=== PATIENT | female | born 1965 | race Caucasian/White ===

== ENCOUNTER 2018-07-25 08:20 | Day surgery (SDC) | payer SELFPAY ==
--- NOTE | 2018-07-25 | COLBX_PTH ---
PATIENT: COURTNEY ZUNIGA LOC: EN U#:[id number] AGE/SX: 52/F ROOM: RE07/25/[address]: Dr. Tony Coe MD : 1965 BED: DIS: 07/25/2018 SPEC #: [id number] RECD: 07/25/18 12:13 STATUS: JACKIE HERB #: [id number] ELI: 07/25/18 00:[address]: Tony Coe DEPT: SURGICAL PATHOLOGY RECD BY: Tanmay Galvez ENTERED: 07/25/18 12:13 SP TYPE: COLON BX OTHR DR: Dr. Yanick Rashid, DO Tissues: Sigmoid colon biopsy Procedures: Surgery Specimen Level IV HEADER OPERATION: Colonoscopy (MAC) PRE-OP DIAGNOSIS: Screening TISSUE SUBMITTED: Sigmoid colon polyp MICROSCOPIC DIAGNOSIS Sigmoid colon polyp, biopsy: Hyperplastic polyp. Fragments of fecal material. See comment. SJ:aj 07/28/18 COMMENT The specimen predominantly consists of fecal material. MICROSCOPIC DESCRIPTION Slides are reviewed. GROSS DESCRIPTION Received in fixative is one container labeled with the patient's name and designated sigmoid colon polyp. The specimen consists of multiple irregular fragments of hyman soft tissue mixed with fecal material that in aggregate measure 2.5 x 0.5 x 0.1 cm. The specimen is totally submitted in one cassette. / SJ:aj 07/25/18 TC:1 CPT: 51956
[2018-07-25 08:36] VITALS: BP 124/74; PULSE 68; RESP 14; TEMP 36.5; O2SAT 100; BMI 29.7
--- NOTE | 2018-07-25 09:14 | H&P.OPEN ---
Past Medical/Surgical History - Planned Operation Planned Operative Procedure/s: COLONOSCOPY Date of Operative Procedure: 07/25/18 Permit Signed: Yes S.O.S: No Is This Patient Having a Total Joint: No - Previous Hospitalizations/Surgeries HX Hospitalizations: No HX of Surgeries: HYSTERECTOMY. TUBAL. Any Problems With Anesthesia: No You/Your Family Experience Fever (Hyperthermia) With Anes: No Cholinesterase deficiency: No - Cardiovascular Hx Chest Pain within Last 2 months: No Hx of Irregular Heartbeat and/or Afib: No Hx Heart Attack: No Hx Congestive Heart Failure: No Hx Rheumatic Fever: No Hx Hypertension: No Hx Internal Defibrillator: No Hx Pacemaker: No Hx Cardiac Catheterization: No Hx Cardiac Surgery/Stents/Etc.: No Hx Stress Test: No HX Edema: No Hx Pain in Legs when Walking/Leg Cramps: No - Respiratory Chronic Cough: No HX of Shortness of Breath: No Hoarseness: No Hx Chronic Obstructive Pulmonary Disease (COPD): No Hx Asthma: No Hx Emphysema: No Hx Sleep Apnea: No Hx Oxygen Use at Home: No Hx Respiratory Tract Infection/Cold (presently): No Do You Snore Loudly (louder than talking or can be heard): No Do You Often Feel Tired/ Fatigued/ Sleepy Dring Daytime?: No Has Anyone Observed You Stop Breathing During Sleep?: No Result (for STOP score): Negative Hx Smoking: No Smoking Status: Never smoker - Gastrointestinal Hx Gastroesophageal Reflux: No Hx Gastrointestinal Disorders: No Hx Gastrointestinal Bleed: No Hx Ulcer: No Hx Hiatal Hernia: No Difficulty Chewing/Swallowing: No Recent Onset of Swallowing Problems: No Special diet followed at home: No Hx Unplanned Weight Loss of 20#: No HX Unplanned Weight Gain of 20#: No - Neurological Hx Seizures: No HX Syncope/Blackout Spells/Unconsciousness: No Hx CVA/Stroke: No Hx Transient Ischemic Attacks (TIA): No Hx Multiple Sclerosis: No Hx Parkinson's Disease: No Hx Head/Neck Injury: No Hx Headaches: No Hx Back Injury/Pain: No Recent Onset of Speech Difficulty: No Restless Legs: No Does patient have nerve stimulator: No - Blood Disorder Hx Leukemia: No Bleeding Tendencies: No Hx Deep Vein Thrombosis: No Hx High Cholesterol: No Blood Transmitted Disease: No Hx Hepatitis: No Hx Cirrhosis: No Hx Anemia: No Hx Blood Disorders: No - Reproduction : No Is Patient Lactating: No Hx Hysterectomy: Yes Hx Tubal Ligation: Yes Are You Post Menopause: Yes - Genitourinary Hx Renal Disease: No - Musculoskeletal Hx Arthritis: No Hx Rheumatoid Arthritis: No Hx Gout: No Recent Onset of an Orthopedic Problem: No - Endocrine Hx Diabetes: No Thyroid Disease: No Hx Steroid Therapy: No - Psycho/Social Hx Substance Use: No Hx Alcohol Use: No Hx Anxiety: No Hx Depression: No Mental Illness: No Hx Dementia: No - Miscellaneous Hx Cancer: No Recent Exposure to Contagious Disease: No Active MRSA: No Hx of C-Diff: No Any Loose Teeth: No Allergies No Known Allergies Allergy (Verified 07/24/18 11:14) - Discharge Is Pt Admitted From a Retirement, or a [place] [facility]: No Who Could Help: After D/C, Where Do you Plan to Go: Return Home - Physical Exam General: Alert, Oriented x3, Cooperative Lungs: Normal air movement Cardiovascular: Regular rate, Regular Rhythm Abdomen: Soft, Non Tender, Non-Distended Vital Signs Temp Pulse Resp BP Pulse Ox 97.7 F L 68 14 124/74 H 100 07/25/18 08:36 07/25/18 08:36 07/25/18 08:36 07/25/18 08:36 07/25/18 08:36 Oxygen Delivery Method Room Air Weight: 167 lb 8.821 oz Body Mass Index (BMI) 29.7 Assessment/Plan 52-year-old female for screening colonoscopy 1. The patient reports that she is having no abdominal pain or blood in her stool at this time. She has never had a colonoscopy. She does have a family history of a sister with colon cancer less than age 60. 2. I explained endoscopy in detail to the patient. I explained the risks including but not limited to stroke or heart attack with anesthesia, perforation of the GI tract, bleeding, infection. I explained that any of these could necessitate further emergency surgery. The patient understands and all questions were answered sufficiently. The patient wishes to proceed with procedure. Tony Coe MD Pager: [facility] [address] [place] [address], [address] [place] [address] Office: Surgery Risks - Colonoscopy Risks Include but are not Limited To: Risks include but are not limited to: Bleeding, perforation requiring further surgery, inability to complete colonoscopy requiring barium enema.
[2018-07-25 10:40] VITALS: BP 124/74; BP 98/66; PULSE 62; RESP 16; TEMP 36.6; O2SAT 100
--- NOTE | 2018-07-25 10:42 | OP.ENDO_ITS ---
Patient Name: Candi Caraballo Procedure Date: 07/25/2018 10:01 AM Date of : 1965 Age: 52 Procedure: Colonoscopy Indications: Screening for colorectal malignant neoplasm, Screening in patient at increased risk: Colorectal cancer in sister before age 60 Providers: Tony Coe MD Referring MD: Tony Coe MD Medicines: Monitored Anesthesia Care Patient Profile: This is a 52 year old female. Last Colonoscopy: none. The patient's first colonoscopy is today. Complications: No immediate complications. Procedure: Pre-Anesthesia Assessment: - Prior to the procedure, a History and Physical was performed, and patient medications and allergies were reviewed. The patient's tolerance of previous anesthesia was also reviewed. The risks and benefits of the procedure and the sedation options and risks were discussed with the patient. All questions were answered, and informed consent was obtained. Prior Anticoagulants: The patient has taken no previous anticoagulant or antiplatelet agents. After reviewing the risks and benefits, the patient was deemed in satisfactory condition to undergo the procedure. After I obtained informed consent, the scope was passed under direct vision. Throughout the procedure, the patient's blood pressure, pulse, and oxygen saturations were monitored continuously. The pediatric colonoscope was introduced through the anus and advanced to the cecum, identified by appendiceal orifice and ileocecal valve. The colonoscopy was somewhat difficult due to a tortuous colon. The patient tolerated the procedure well. The quality of the bowel preparation was good. Scope In: 10:06:55 AM Scope Withdrawal Time 0 hours 11 minutes 54 seconds Scope Out: 10:36:25 AM Total Procedure Duration Time 0 hours 29 minutes 30 seconds Findings: A polyp was found in the sigmoid colon. The polyp was removed with a hot snare. Resection and retrieval were complete. The exam was otherwise without abnormality on direct and retroflexion views. Impression: - One polyp in the sigmoid colon, removed with a hot snare. Resected and retrieved. - The examination was otherwise normal on direct and retroflexion views. Recommendation: - Discharge patient to home. - Resume previous diet. - Continue present medications. - Await pathology results. - Repeat colonoscopy date to be determined after pending pathology results are reviewed for surveillance. No later than 5 years due to family history of colon cancer. - Physician's office will call you with pathology results and recommendations for when to repeat colonoscopy. Procedure Code(s): --- Professional --- 84657, PT, Colonoscopy, flexible; with removal of tumor(s), polyp(s), or other lesion(s) by snare technique Diagnosis Code(s): --- Professional --- Z12.11, Encounter for screening for malignant neoplasm of colon Z80.0, Family history of malignant neoplasm of digestive organs D12.5, Benign neoplasm of sigmoid colon CPT copyright 2017 [employer]. All rights reserved. The codes documented in this report are preliminary and upon pigeon fancier review may be revised to meet current compliance requirements. Tony Coe MD 07/25/2018 10:41:53 AM This report has been signed electronically. Number of Addenda: 0 Note Initiated On: 07/25/2018 10:01 AM
[2018-07-25 10:45] VITALS: BP 124/74; BP 98/64; PULSE 65; RESP 16; O2SAT 100
[2018-07-25 10:50] VITALS: BP 124/74; BP 97/71; PULSE 62; RESP 16; O2SAT 100
[2018-07-25 10:55] VITALS: BP 124/74; BP 98/71; PULSE 63; RESP 16; TEMP 36.7; O2SAT 100
[2018-07-25 11:26] VITALS: BP 124/74
== END 2018-07-25 11:30 | disposition home or self-care (01) ==
PROVIDERS: Family Provider Family Medicine; PCP Family Medicine; Visit Provider Surgery
PROC: 0DJD8ZZ Inspection of Lower Intestinal Tract, Via Natural or Artificial Opening Endoscopic (ICD-10-PCS; CPT 45378; principal; 2018-07-25 09:25)
DX: Z12.11 Encounter for screening for malignant neoplasm of colon (principal); K63.5 Polyp of colon; Z78.0 Asymptomatic menopausal state; Z80.0 Family history of malignant neoplasm of digestive organs
CPT/HCPCS: 45385; 88305; J7120

== ENCOUNTER → 2022-10-16 | Outpatient (CLI) | payer SELFPAY ==
--- NOTE | 2022-10-16 10:07 | EKG12_ITS ---
Test Reason : PREOP Blood Pressure : / mmHG Vent. Rate : 069 BPM Atrial Rate : 069 BPM P-R Int : 156 ms QRS Dur : 078 ms QT Int : 380 ms P-R-T Axes : 044 047 020 degrees QTc Int : 407 ms Normal sinus rhythm Normal ECG Confirmed by HENNA YEPEZ, MODE ([id number]), manager editorial MIQUEL RUGGIERO ([id number]) on 10/17/2022 9:57:17 AM Referred By: ELENA Confirmed By:MODE AGUILLON MD
[2022-10-16 11:26] LABS: Hematocrit 39.6 % (37-47); Mean Corp Hgb Conc 35.4 g/dL (32-36); Mean Corpuscular Hgb 33.1 pg (27.0-32.0); Mean Corpuscular Volume 93.6 fL (81-99); Mean Platelet Vol. 8.7 fl (6.2-12.0); Platelet Count 224 K/mm3 (150-450); RBC Distribution Width CV 13.1 % (11.6-14.6); RBC Distribution Width SD 44.7 fl (35.1-43.9); Red Blood Count 4.23 M/mm3 (4.2-5.4); White Blood Count 4.7 K/mm3 (4.4-11.0)
[2022-10-16 11:47] LABS: Anion Gap 6 (5-15); BUN 13 mg/dL (7-18); BUN/Creat Ratio 18.1 RATIO (10-20); Calcium,Total 9.6 mg/dL (8.5-10.1); Chloride 106 mmol/L (98-107); Creatinine, Serum 0.72 mg/dL (0.55-1.02); EST Glomerular Filtration Rate 89 mL/min (>60); Est Glom Filt Rate - Afr Amer 107 mL/min (>60); Glucose 105 mg/dL (74-106); Potassium 3.9 mmol/L (3.5-5.1); Sodium Level 141 mmol/L (136-145)
== END | disposition home or self-care (01) ==
PROVIDERS: PCP Family Medicine; Visit Provider Otolaryngology
DX: Z01.812 Encounter for preprocedural laboratory examination (principal)
CPT/HCPCS: 36415; 80048; 85027; 93005

== ENCOUNTER → 2023-06-21 | Outpatient (CLI) | payer SELFPAY | END | disposition home or self-care (01) | LOC: LABSPEC 12:26 | PROVIDERS: PCP Family Medicine; Referring Provider Physician Assistant Surgical; Visit Provider Physician Assistant Surgical | DX: N39.0 Urinary tract infection, site not specified (principal) | CPT/HCPCS: 87086 ==

== ENCOUNTER → 2024-11-25 | Outpatient (CLI) | payer SELFPAY ==
--- NOTE | 2024-11-25 15:47 | RAD_ITS ---
PROCEDURE: Scoliosis series REASON FOR EXAM: Pain, scoliosis TECHNIQUE: Standing frontal and lateral views of the thoracolumbar spine COMPARISON: None. FINDINGS: See impression RAD/Scoliosis 2 or 3 views IMPRESSION: Mild lower thoracic levoscoliosis with a Israel angle measuring 15 degrees from t he superior endplates of the T6 and T12 vertebral bodies. Moderate lumbar dextroscoliosis measuring 20 degrees from the superior endplate s of the T12 and L4 vertebral bodies. There are 12 thoracic vertebrae and 5 nzq-cpy-alygsod lumbar type vertebral bod ies. [id number]-cj-whlfnozb multilevel disc space narrowing throughout the spine. Reading Location: [facility]
[2024-11-25 16:53] LABS: Absolute Lymphocyte Count 1.56 X10^3/uL (0.83-4.51); Absolute Neutrophil Count 3.1 X10^3/uL (2.0-7.7); Basophil# 0.05 X10^3/uL; Basophil% 0.9 % (0-1); Eosinophils% 3.8 % (0-5); Hematocrit 40.7 % (37-47); Hemoglobin 13.9 g/dL (12.0-15.0); Lymphocyte # 1.56 X10^3/ul (0.83-4.51); Lymphocyte % 29.5 % (19-41); Mean Corp Hgb Conc 34.2 g/dL (32-36); Mean Corpuscular Hgb 31.6 pg (27.0-32.0); Mean Corpuscular Volume 92.5 fL (81-99); Mean Platelet Vol. 8.9 fl (6.2-12.0); Monocyte# 0.33 X10^3/uL; Monocyte% 6.2 % (0-10); NRBC Flagged by Analyzer 0 % (0-5); Neutrophil # 3.14 X10^3/uL (2.7-7.7); Neutrophil % 59.4 % (47-70); Platelet Count 246 K/mm3 (150-450); RBC Distribution Width CV 12.8 % (11.6-14.6); RBC Distribution Width SD 43.1 fl (35.1-43.9); White Blood Count 5.3 K/mm3 (4.4-11.0)
[2024-11-25 17:32] LABS: AST(SGOT) 20 U/L (15-37); Alanine Aminotransfer ALT/SGPT 28 U/L (13-56); Albumin, Serum 3.9 g/dL (3.2-5.0); Alkaline Phosphatase 69 U/L (45-117); Anion Gap 6 (5-15); BUN 10 mg/dL (7-18); BUN/Creat Ratio 11.8 RATIO (10-20); Calcium,Total 9.6 mg/dL (8.5-10.1); Chloride 107 mmol/L (98-107); Creatinine, Serum 0.85 mg/dL (0.55-1.02); EST Glomerular Filtration Rate 73 mL/min (>60); Est Glom Filt Rate - Afr Amer 88 mL/min (>60); Globulin 3.8 g/dL (2.2-4.2); Glucose 102 mg/dL (74-106); Potassium 3.8 mmol/L (3.5-5.1); Protein, Total 7.7 g/dL (6.4-8.2); Sodium Level 140 mmol/L (136-145)
== END | disposition home or self-care (01) ==
PROVIDERS: PCP Family Medicine; Referring Provider Family Medicine; Visit Provider Family Medicine
DX: M41.9 Scoliosis, unspecified (principal); R42 Dizziness and giddiness
CPT/HCPCS: 36415; 72082; 80053; 84443; 85025

== ENCOUNTER → 2025-01-05 | Outpatient (CLI) | payer SELFPAY ==
--- NOTE | 2025-01-05 09:45 | BI_ITS ---
EXAM: PROCEDURE: MA Mammogram Digital Screen CLINICAL HISTORY: Screening COMPARISON: The left TECHNIQUE: A bilateral screening mammogram was obtained with MLO and CC views of both breasts with digital breast tomosynthesis. BREAST CANCER RISK ASSESSMENT: Does not appear to have been calculated. FINDINGS: There is a 3 mm well-circumscribed isodense mass in the superior outer, far posterior aspect of the right breast. This does not appear to have a definitive fatty hilum. Additional workup is recommended. Benign-appearing round microcalcifications are seen in the right breast. Benign round microcalcifications are seen in the left breast. No suspicious masses, suspicious calcifications or other suspicious mammogram findings are seen in the left breast. CONCLUSION: Right Breast: BI-RADS category 0, incomplete, additional imaging needed. Left Breast: BI-RADS category 2, benign findings Breast Composition: There are scattered areas of fibroglandular density. Recommendation: Diagnostic mammogram and ultrasound The patient should return for an LM view of the right breast as well as spot compression magnification CC and spot-compression magnification LM views of the right breast mass. An ultrasound may also be needed Reading Location: [id number]
== END | disposition home or self-care (01) ==
PROVIDERS: PCP Family Medicine; Referring Provider Family Medicine; Visit Provider Family Medicine
DX: Z12.31 Encounter for screening mammogram for malignant neoplasm of breast (principal)
CPT/HCPCS: 77063; 77067

== ENCOUNTER → 2025-01-25 | Outpatient (CLI) | payer SELFPAY ==
--- NOTE | 2025-01-25 08:52 | US_ITS ---
PROCEDURE: BREAST LIMITED UNILATERAL 01/25/2025 REASON FOR EXAM: NODULE TECHNIQUE: Targeted left breast ultrasound. COMPARISON: Comparison is made with prior mammogram done earlier in the day. FINDINGS: Right breast ultrasound was targeted to the axillary region.. The breast tissue appears sonographically normal. The mammographic abnormality corresponds to a 3 mm x 4 mm x 3 mm benign-appearing lymph node at the 10 o'clock position of the breast at 9 cm from the nipple. US/Breast Limited Unilateral IMPRESSION: Impression: 3 mm x 4 mm x 3 mm benign-appearing lymph node at the 10 o'clock po sition of the breast at 9 cm from the nipple. Birads: BI-RADS 2: BENIGN. RECOMMEND ANNUAL MAMMOGRAPHIC SCREENING. Reading Location: [place] [address]
--- NOTE | 2025-01-25 08:52 | BI_ITS ---
PROCEDURE: DIAG MAMM W/CAD, UNILAT REASON FOR EXAM: F, Age 59 y/o , NODULE 3 mm nodule in the axillary region of the right breast. COMPARISON: Prior exam(s) dating back to January 05, 2025.. TECHNIQUE: Left diagnostic digital breast tomosynthesis with 2D and 3D images. Computer aided detection. FINDINGS: TISSUE DENSITY: There are scattered areas of fibroglandular density. Persistent well-defined 3 mm nodule in the deep upper lateral aspect of the right breast. Correlation with ultrasound recommended. BI/DIAG MAMM W/CAD, UNILAT IMPRESSION: Persistent 3 mm well-defined nodule in the upper-outer aspect of the right [address] st as described. Sonographic correlation recommended. BI-RADS 0: INCOMPLETE - NEED ADDITIONAL IMAGING EVALUATION. Reading Location: [place] [address]
== END | disposition home or self-care (01) ==
PROVIDERS: PCP Family Medicine; Referring Provider Family Medicine; Visit Provider Family Medicine
DX: N63.11 Unspecified lump in the right breast, upper outer quadrant (principal)
CPT/HCPCS: 76642; 77065

== ENCOUNTER 2025-06-01 07:01 | Day surgery (SDC) | payer SELFPAY, OTHER ==
[2025-06-01] VITALS (8 sets, daily range): BP systolic 84–111; BP diastolic 60–75; PULSE 63–68; RESP 14–16; TEMP 36.1–36.7; O2SAT 97–100; BMI 30.9
[2025-06-01] MEDS: Lactated Ringers 1,000 ML 15 ML IV (07:30)
--- NOTE | 2025-06-01 08:04 | PCM.PRE.AN2 ---
ASA Classification* ASA Classification ASA Classification: 2 Assessment & Plan Anesthesia* Anesthesia Assessment Anesthesia Assessment: Discussed sedation and/or anesthesia options, risks, benefits, and alternatives with patient/parents/legal guardian/POA. Questions invited. The patient/parents/legal guardian/POA seems to understand and agrees to proceed with anesthesia plan. Reviewed the physical assessment, medical history, allergy history and patient home medications list prior to surgery/procedure/anesthetic and documented any changes. Performed airway and anesthesia risk assessments. Anesthesia Type Anesthesia Type: MAC History Source History Obtained from:: Patient and Chart Anesthesia Focused Assessment* Temperature: 97.2 F Pulse Rate: 68 Blood Pressure: 111/75 Respiratory Rate: 16 Pulse Ox: 98 Oxygen Delivery Method: Room Air Airway Assessment Mouth opens: >3 cm Mallampati Score: II Teeth Condition: Intact Neck Range of motion (ROM): Full ROM Labs Anesthesia Preop lab: CBC WBC 5.3 K/mm3 (4.4-11.0) 11/25/24 15:11/25/24 RBC 4.40 M/mm3 (4.2-5.4) 11/25/24 15:11/25/24 Hgb 13.9 g/dL (12.0-15.0) 11/25/24 15:11/25/24 Hct 40.7 % (37-47) 11/25/24 15:11/25/24 Plt Count 246 K/mm3 (150-450) 11/25/24 15:07 11/25/24 CHEMISTRY Potassium 3.8 mmol/L (3.5-5.1) 11/25/24 15:11/25/24 Sodium 140 mmol/L (136-145) 11/25/24 15:11/25/24 BUN 10 mg/dL (7-18) 11/25/24 15:11/25/24 Creatinine 0.85 mg/dL (0.55-1.02) 11/25/24 15:11/25/24 Glucose 102 mg/dL (74-106) 11/25/24 15:07 11/25/24 TSH 1.550 uIU/mL (0.358-3.740) 11/25/24 15:11/25/24 COAG Pre-Assessment Diagnosis/Proposed Procedure Planned Operative Procedure(s): COLONOSCOPY Anesthesia History 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 When Was Last Pacemaker Check QUESTION #4 FULL TEXT: You/Your Family Experience fever (hyperthermia) with Anesthesia Last Oral Intake Last Oral intake: Last Oral Intake NPO since 05:00 06/01/25 07:27 Meds taken in AM with sips of No 06/01/25 07:27 water? Meds patient instructed to take am of surgery PONV PONV - retail wireless sales consultant: PONV - retail wireless sales consultant Female Yes 05/31/25 10:58 HX of Motion Sickness Yes 05/31/25 10:58 HX of N/V After Surgery No 05/31/25 10:58 Non-Smoker Yes 05/31/25 10:58 Duration of Surgery greater No 05/31/25 10:58 than 60 minutes Number of Risk Factors 3 05/31/25 10:58 PONV Score Moderate Risk 05/31/25 10:58 Height & Weight Height & Weight: Anesthesia: Height & Weight Height 5 ft 3 in 06/01/25 07:27 Weight: 79.3 kg 06/01/25 07:27 Body Mass Index (BMI) 30.9 06/01/25 07:27 Respiratory Assessment Respiratory Assessment - retail wireless sales consultant: Respiratory Tract Infection Hx - retail wireless sales consultant Hx Respiratory Tract Infection No 05/31/25 10:58 STOP Sleep Apnea STOP Sleep Apnea - retail wireless sales consultant: STOP Sleep Apnea - retail wireless sales consultant Hx Hypertension No 05/31/25 10:58 Hx Sleep Apnea No 05/31/25 10:58 CPAP BIPAP Do you snore loudly (louder No 05/31/25 10:58 than talking or can be heard Do you often feel tired/ No 05/31/25 10:58 fatigued/ sleepy during daytime? Has anyone observed you stop No 05/31/25 10:58 breathing during sleep? STOP Results Negative 05/31/25 10:58 QUESTION #5 FULL TEXT : Do you snore loudly (louder than talking or can be heard through closed doors)? Tobacco Use History Tobacco Use History - retail wireless sales consultant: Tobacco Use History - retail wireless sales consultant Tobacco Use Smoking Status Never smoker 05/31/25 10:58 Hx Tobacco Use No 05/31/25 10:58 Years Smoking Packs Smoked per Day Smoking Cessation Date was within the last 15 years Hx Smoking Cessation Date Hx Smoking Cessation Counseling Hematologic Medial History Hematologic Hx - retail wireless sales consultant: Hematologic Medical Hx - bulk receiver Hx of Blood Transfusion No 05/31/25 10:58 Hx of Transfusion in last 3 No 05/31/25 10:58 Months Date of Last Transfusion (if within last 3 months) Ever experience any problems No 05/31/25 10:58 with transfusion(s)? Specify any problems Hx of Preganancy in last 3 No 05/31/25 10:58 Months Nurse Filling Out Transfusion MGRIFFITH 05/31/25 10:58 & Questions: Date: 05/31/25 05/31/25 10:58 Time: 10:59 05/31/25 10:58 Patient unable to answer at this time (ie. confused, unrespo /Reproduction History /Reproductive History - retail wireless sales consultant: /Reproductive Hx- retail wireless sales consultant Hx Now No 05/31/25 10:58 Gestational Age (in weeks): EDC: Hx Hx Para Hx Section SAB No 05/31/25 10:58 Active Medications Active Medications: Current Medications Generic Name Dose Route Start Last Admin Trade Name Freq PRN Reason Stop Dose Admin Lactated Ringer's 1,000 mls @ 15 mls/hr 06/01/25 07:15 06/01/25 07:30 IV 15 mls/hr .Q48H MIGUELITO Administration PFSH Medical History Wears glasses Post-menopausal Non-smoker Family history of malignant neoplasm of colon in first degree relative diagnosed when younger than 60 years of age Hx of colonic polyp History of mammogram Somatic dysfunction Home Medications ?Medication ?Instructions ?Recorded ?Last Taken ?Type black cohosh 200 mg capsule 200 mg PO QDAY 12/01/24 Unknown History slippery elm bark 400 mg capsule 800 mg PO QDAY 12/01/24 Unknown History Allergy/AdvReac Type Severity Reaction Status Date / Time No Known Allergies Allergy Verified 06/01/25 07:26 Family History Sister Diabetes Colon cancer, Onset Age: 59 Liver disease Grandmother Diabetes Grandmother Diabetes Father Heart disease Mother Esophageal cancer Liver cancer Brother Diabetes Daughter Breast cancer, Onset Age: 33 Surgical History History of ear surgery History of colonoscopy History of varicose vein ligation History of hysterectomy History of tubal ligation History of Social History household members: spouse current occupational status: unemployed Smoking Status: Never smoker alcohol intake: never substance use type: does not use what type of physical activity do you participate in: walking frequency: daily concepcion/mormon: Mormon Review of Systems (Anesthesia) ROS Narrative System reviewed and no additional complaints, except as documented.
--- NOTE | 2025-06-01 08:07 | H&P.OPEN ---
HPI - General HPI Narrative COURTNEY ZUNIGA, is a 59 F who presents for surveillance colonoscopy. Her last colonoscopy was 8 years ago. She had a polyp removed. She denies abdominal pain or blood in the stool. [facility] Medical History (Updated 06/01/25 @ 08:[address] Tony Coe MD) Wears glasses Post-menopausal Non-smoker Family history of malignant neoplasm of colon in first degree relative diagnosed when younger than 60 years of age Hx of colonic polyp History of mammogram Somatic dysfunction Home Medications ?Medication ?Instructions ?Recorded ?Last Taken ?Type black cohosh 200 mg capsule 200 mg PO QDAY 12/01/24 Unknown History slippery elm bark 400 mg capsule 800 mg PO QDAY 12/01/24 Unknown History Allergy/AdvReac Type Severity Reaction Status Date / Time No Known Allergies Allergy Verified 06/01/25 07:26 Family History Sister Diabetes Colon cancer, Onset Age: 59 Liver disease Grandmother Diabetes Grandmother Diabetes Father Heart disease Mother Esophageal cancer Liver cancer Brother Diabetes Daughter Breast cancer, Onset Age: 33 Surgical History History of ear surgery History of colonoscopy History of varicose vein ligation History of hysterectomy History of tubal ligation History of Social History household members: spouse current occupational status: unemployed Smoking Status: Never smoker alcohol intake: never substance use type: does not use what type of physical activity do you participate in: walking frequency: daily concepcion/voodoo: [employer] Past Medical/Surgical History Planned Operation Planned Operative Procedure(s): COLONOSCOPY S.O.S: No Previous Hospitalizations/Surgeries HX Hospitalizations: No HX of Surgeries: HYSTERECTOMY TUBAL Any Problems With Anesthesia: No You/Your Family Experience Fever (Hyperthermia) With Anes: No Cholinesterase deficiency: No Cardiovascular Hx Chest Pain within Last 2 months: No Hx of Irregular Heartbeat and/or Afib: No Hx Heart Attack: No Hx Congestive Heart Failure: No Hx Rheumatic Fever: No Hx Hypertension: No Hx Internal Defibrillator: No Hx Pacemaker: No Hx Cardiac Catheterization: No Hx Cardiac Surgery/Stents/Etc.: No Hx Stress Test: No Hx Pain in Legs when Walking/Leg Cramps: No Respiratory Chronic Cough: No HX of Shortness of Breath: No Hoarseness: No Hx Chronic Obstructive Pulmonary Disease (COPD): No Hx Asthma: No Hx Emphysema: No Hx Sleep Apnea: No Hx Respiratory Tract Infection/Cold (presently): No Do You Snore Loudly (louder than talking or can be heard): No Do You Often Feel Tired/ Fatigued/ Sleepy Dring Daytime?: No Has Anyone Observed You Stop Breathing During Sleep?: No Result (for STOP score): Negative Hx Smoking: No Smoking Status: Never smoker Gastrointestinal Hx Gastrointestinal Disorders: No Hx Gastrointestinal Bleed: No Hx Ulcer: No Hx Hiatal Hernia: No Difficulty Chewing/Swallowing: No Special diet followed at home: No Hx Unplanned Weight Loss of 20#: No HX Unplanned Weight Gain of 20#: No Neurological Hx Seizures: No HX Syncope/Blackout Spells/Unconsciousness: No Hx Transient Ischemic Attacks (TIA): No Hx Multiple Sclerosis: No Hx Parkinson's Disease: No Hx Head/Neck Injury: No Hx Headaches: No Hx Back Injury/Pain: No Recent Onset of Speech Difficulty: No Restless Legs: No Does patient have nerve stimulator: No Blood Disorder Hx Leukemia: No Bleeding Tendencies: No Hx Deep Vein Thrombosis: No Hx High Cholesterol: No Blood Transmitted Disease: No Hx Hepatitis: No Hx Cirrhosis: No Hx Anemia: No Hx Blood Disorders: No Reproduction : No Is Patient Lactating: No Hx Hysterectomy: Yes Hx Tubal Ligation: Yes Are You Post Menopause: Yes Genitourinary Hx Renal Disease: No Musculoskeletal Hx Arthritis: No Hx Rheumatoid Arthritis: No Hx Gout: No Recent Onset of an Orthopedic Problem: No Endocrine Hx Diabetes: No Thyroid Disease: No Hx Steroid Therapy: No Psycho/Social Hx Substance Use: No Hx Alcohol Use: No Hx Anxiety: No Hx Depression: No Mental Illness: No Hx Dementia: No Miscellaneous Hx Cancer: No Recent Exposure to Contagious Disease: No Hx of C-Diff: No Any Loose Teeth: No Allergies No Known Allergies Allergy (Verified 06/01/25 07:26) Discharge Is Pt Admitted From a Senior Living, or a Retirement: No Who Could Help: FAMILY After D/C, Where Do you Plan to Go: Return Home Vital Signs Vital Signs Vital Signs: 06/01/25 07:27 06/01/25 07:27 06/01/25 08:05 Temperature 97.2 F L 97.2 F L Temperature Source Temporal Pulse Rate 68 68 Respiratory Rate 16 16 Respiratory Pattern Normal Blood Pressure 111/75 111/75 Blood Pressure Mean 87 Blood Pressure Source Monitor Blood Pressure Position Semi-Fowlers Blood Pressure Location Left Arm Pulse Ox 98 98 Oxygen Delivery Method Room Air Room Air Weight Weight: 174 lb 13.225 oz Body Mass Index (BMI) 30.9 Physical Exam Const alert and oriented x3 HEENT normocephalic Eyes PERRL Resp normal respiratory effort and normal air movement Cardio regular rate and regular rhythm GI soft to palpation, non-tender and non-distended Extremity normal to inspection Assessment & Plan Assessment/Plan (1) Hx of colonic polyp: PLAN: I explained endoscopy in detail to the patient. I explained the risks including but not limited to stroke or heart attack with anesthesia, perforation of the GI tract, bleeding, infection. I explained that any of these could necessitate further emergency surgery. The patient understands and all questions were answered sufficiently. The patient wishes to proceed with procedure. Tony Coe MD Pager: [facility] [address] [place] [address], [address] [place] [address] Office: Surgery Risks - Colonoscopy Risks Include but are not Limited To: Risks include but are not limited to: Bleeding, perforation requiring further surgery, inability to complete colonoscopy requiring barium enema.
--- NOTE | 2025-06-01 08:15 | COLBX_PTH ---
PATIENT: COURTNEY ZUNIGA LOC: EN U#:[id number] AGE/SX: 59/F ROOM: RE06/01/[address]: Dr. Tony Coe MD : 1965 BED: DIS: 06/01/2025 SPEC #: [id number] RECD: 06/01/25 09:55 STATUS: JACKIE REOtto #: [id number] ELI: 06/01/25 08:[address]: Tony Coe DEPT: SURGICAL PATHOLOGY RECD BY: Minesh Lamb ENTERED: 06/01/25 13:26 SP TYPE: COLON BX OTHR DR: Dr. Yanick Rashid, DO Tissues: A - Sigmoid colon biopsy Procedures: Surgery Specimen Level IV HEADER OPERATION: Colonoscopy with polypectomy PRE-OP DIAGNOSIS: History of colonic polyps TISSUE SUBMITTED: A- Sigmoid colon polyp MICROSCOPIC DIAGNOSIS A. Sigmoid colon, polyp, biopsy: Tubulovillous adenoma, multiple fragments. MICROSCOPIC DESCRIPTION Slides are reviewed. GROSS DESCRIPTION A. Received in fixative is one container labeled with the patient's name and designated Sigmoid colon polyp. The specimen consists of a 1.2 x 0.9 x 0.7 cm pink-red, irregular and granular, friable polypoid tissue fragment. A definitive resection margin is unable to be determined grossly. The specimen is trisected (fragmented upon sectioning) and entirely submitted in 1 cassette. ME 06/01/2025 CPT:97422
--- NOTE | 2025-06-01 08:51 | OP.COLON_ITS ---
Patient Name: Candi Caraballo Procedure Date: 06/01/2025 8:07 AM Date of : 1965 Age: 59 Procedure: Colonoscopy Indications: High risk colon cancer surveillance: Personal history of colonic polyps Providers: Tony Coe MD Referring MD: Yanick Rashid Medicines: Propofol per Anesthesia Patient Profile: This is a 59 year old female. Refer to note in patient chart for documentation of history and physical. Last Colonoscopy: several years ago. Complications: No immediate complications. Estimated blood loss: Minimal. Procedure: Pre-Anesthesia Assessment: - Prior to the procedure, a History and Physical was performed, and patient medications and allergies were reviewed. The patient's tolerance of previous anesthesia was also reviewed. The risks and benefits of the procedure and the sedation options and risks were discussed with the patient. All questions were answered, and informed consent was obtained. Prior Anticoagulants: The patient has taken no anticoagulant or antiplatelet agents. After reviewing the risks and benefits, the patient was deemed in satisfactory condition to undergo the procedure. After I obtained informed consent, the scope was passed under direct vision. Throughout the procedure, the patient's blood pressure, pulse, and oxygen saturations were monitored continuously. The Colonoscope was introduced through the anus and advanced to the cecum, identified by appendiceal orifice and ileocecal valve. The colonoscopy was performed without difficulty. The patient tolerated the procedure well. The quality of the bowel preparation was good. The ileocecal valve, appendiceal orifice, and rectum were photographed. Scope In: 8:18:34 AM Scope Withdrawal Time 0 hours 4 minutes 55 seconds Scope Out: 8:47:00 AM Total Procedure Duration Time 0 hours 28 minutes 26 seconds Findings: A medium polyp was found in the sigmoid colon. The polyp was sessile. The polyp was removed with a saline injection-lift technique using a hot snare. Resection and retrieval were complete. Area was tattooed with an injection of 0.8 mL of Kaia ink. Impression: - One medium polyp in the sigmoid colon, removed using injection-lift and a hot snare. Resected and retrieved. Tattooed. Recommendation: - Discharge patient to home. - Resume previous diet. - Continue present medications. - Await pathology results. - Repeat colonoscopy in 5 years for surveillance based on pathology results. Procedure Code(s): --- Professional --- 30831, Colonoscopy, flexible; with removal of tumor(s), polyp(s), or other lesion(s) by snare technique 38105, Colonoscopy, flexible; with directed submucosal injection(s), any substance Diagnosis Code(s): --- Professional --- Z86.010, Personal history of colonic polyps D12.5, Benign neoplasm of sigmoid colon CPT copyright 2021 [employer]. All rights reserved. The codes documented in this report are preliminary and upon senior commissary agent review may be revised to meet current compliance requirements. Tony Coe MD 06/01/2025 8:51:31 AM This report has been signed electronically. Number of Addenda: 0 Note Initiated On: 06/01/2025 8:07 AM
--- NOTE | 2025-06-01 08:52 | OP.PROVAT_ITS ---
06/01/2025 Yanick Rashid Re : Colonoscopy procedure for Candi Caraballo Dear Dr. Rashid This procedure was performed on Sunday, June 01, 2025. My impressions and recommendations are as follows: Impressions : - One medium polyp in the sigmoid colon, removed using injection-lift and a hot snare. Resected and retrieved. Tattooed. Recommendations : - Discharge patient to home. - Resume previous diet. - Continue present medications. - Await pathology results. - Repeat colonoscopy in 5 years for surveillance based on pathology results. My findings are described in the full procedure note, which is enclosed. If I can be of further assistance, please feel free to contact me at Doctor phone number(s): , Work: . Sincerely, Tony Coe MD 06/01/2025 8:51:31 AM This report has been signed electronically.
--- NOTE | 2025-06-01 09:01 | PCM.POST.ANE ---
Anesthesia: Postop Eval I Current Vital Signs Temperature: 98.1 F Pulse Rate: 67 Blood Pressure: 94/62 Respiratory Rate: 16 Pulse Ox: 97 Assessment Airway patent: Yes Spontaneous unlabored respirations: Yes nausea: No Vomiting: No Anesthesia Complication: No Fluid Hydration Crystalloid volume administer (ml): 800 Total IV fluid infused: 800 Progress Note Anesthesia document: Postop Eval 1 completed: Yes
== END 2025-06-01 10:19 | disposition home or self-care (01) ==
LOC: EN 07:03 → AC 07:05
PROVIDERS: PCP Family Medicine; Referring Provider Family Medicine; Visit Provider Surgery
PROC: 0DJD8ZZ Inspection of Lower Intestinal Tract, Via Natural or Artificial Opening Endoscopic (ICD-10-PCS; CPT 45378; principal; 2025-06-01 08:10)
DX: Z12.11 Encounter for screening for malignant neoplasm of colon (principal); Z90.710 Acquired absence of both cervix and uterus; Z86.0100 Personal history of colon polyps, unspecified; Z98.51 Tubal ligation status; K63.5 Polyp of colon
CPT/HCPCS: 45385; 45381; 88305; A4648; J2405